=== PATIENT | female | born 2000 ===

== ENCOUNTER 2021-06-08 21:37 | Emergency (ER) ==
[~2021-06-08] VITALS: Ht 157.5 cm; Wt 66.3 kg
[2021-06-08] MEDS ORDERED: OMEP20TA2 PO (21:44)
== END 2021-06-08 23:48 | disposition left against medical advice (07) ==
LOC: M ED 21:37
DX: Z53.29 Procedure and treatment not carried out because of patient's decision for other reasons (principal)